=== PATIENT | female | born 1990 | race Caucasian/White ===

== ENCOUNTER 2017-01-14 11:09 | Emergency (ER) | payer BC ==
[~2017-01-14] VITALS: Ht 160 cm; Wt 90.0 kg
[~2017-01-14 11:09] MED LIST: ULTRAM 50MG TAB50 MG PO; ZOFRAN8 MG PO
[2017-01-14 11:14] VITALS: BP 122/73; PULSE 75; TEMP 98.2
[2017-01-14 12:44] LABS: ADJUSTED CALCIUM 9.4 mg/dL (8.4-10.2); ALBUMIN 4.3 gm/dL (3.5-5.0); BILIRUBIN,TOTAL 0.7 mg/dL (0.0-1.0); CALCIUM 9.6 mg/dL (8.4-10.2); CREATININE, serum 0.64 mg/dL (0.52-1.25); POTASSIUM 4.1 mmol/L (3.4-5.0); TOTAL PROTEIN 7.8 gm/dL (6.4-8.2)
[2017-01-14 12:48] LABS: BASO % 0.5 % (0.0-2.0); EOS # 0.2 (0.0-0.7); EOS % 2.3 % (0-4.0); GRAN # 5.4 (1.4-6.5); GRAN % 65.2 % (42.2-75.2); HEMATOCRIT 39.6 % (37.0-47.0); HEMOGLOBIN 12.8 g/dl (12.5-16.0); LYMPH # 2.2 (1.2-3.4); LYMPH % 26.8 % (20.0-51.0); MEAN CELL VOLUME 82 fl (80.0-100.0); MEAN CORPUSCULAR HEMOGLOBIN 27 pg (27.0-31.0); MEAN CORPUSCULAR HGB CONC 32 g/dl (33.0-37.0); MEAN PLATELET VOLUME 10.2 fl (7.4-10.4); MONO # 0.4 (0.1-0.6); PLATELET COUNT 306 K/mm3 (130-400); RED BLOOD COUNT 4.82 M/mm3 (4.10-5.30); REDCELL DISTRIBUTION WIDTH-CV 12.6 % (11.5-14.5); WHITE BLOOD COUNT 8.3 K/mm3 (4.8-10.8)
== END 2017-01-14 13:35 | disposition home or self-care (01) ==
LOC: COL.ER 11:09
PROVIDERS: Physician Assistant
DX: R63.5 Abnormal weight gain (principal); L65.9 Nonscarring hair loss, unspecified; N92.6 Irregular menstruation, unspecified; E01.0 Iodine-deficiency related diffuse (endemic) goiter

== ENCOUNTER → 2017-01-29 | Outpatient (CLI) | payer BC ==
[~2017-01-29] VITALS: Ht 160 cm; Wt 89.1 kg
[~2017-01-29] MED LIST changes: +NORCO 325 MG-7.1 TAB PO
[2017-01-29 13:49] VITALS: BP 113/80; PULSE 73
[2017-01-29 15:00] VITALS: BP 122/79; PULSE 71
[2017-01-29 15:15] VITALS: BP 118/81; PULSE 60
[2017-01-29 15:30] VITALS: BP 130/88; PULSE 67
[2017-01-29 15:45] VITALS: BP 123/77; PULSE 70
== END ==
LOC: COL.RAD 01-22 07:30
DX: C73 Malignant neoplasm of thyroid gland (principal)
CPT/HCPCS: 13756

== ENCOUNTER 2017-02-16 11:21 | Day surgery (SDC) | payer BC ==
[~2017-02-16] VITALS: Ht 160 cm; Wt 89.4 kg
[2017-02-16] VITALS (8 sets, daily range): BP systolic 109–117; BP diastolic 64–77; PULSE 71–81; TEMP 97.2–98.3
[~2017-02-16 11:21] MED LIST changes: -NORCO 325 MG-7.1 TAB PO
[2017-02-17 01:40] VITALS: PULSE 90; TEMP 98.2
[2017-02-17 06:24] VITALS: BP 117/65; PULSE 81; TEMP 98.4
[2017-02-17 10:19] VITALS: BP 119/73; PULSE 70; TEMP 97.9
[2017-02-17 13:35] VITALS: BP 116/67; PULSE 83; TEMP 98.3
[2017-02-17] MEDS ORDERED: NORCO 325 MG-7.1 TAB PO (16:10)
== END 2017-02-17 18:34 | disposition home or self-care (01) ==
LOC: SDCO 11:21 → SURG 16:08 → SDCO 02-17 18:34 → SURG 02-17 18:34
DX: C73 Malignant neoplasm of thyroid gland (principal); Z80.3 Family history of malignant neoplasm of breast; E66.01 Morbid (severe) obesity due to excess calories; Z68.35 Body mass index [BMI] 35.0-35.9, adult
CPT/HCPCS: J1100; J1170; J1885; J2405; J2550; J2704; J3010; J7120

== ENCOUNTER → 2017-03-12 | Outpatient (CLI) | payer BC ==
[~2017-03-12] MED LIST changes: +NORCO 325 MG-7.1 TAB PO
== END ==
LOC: COL.LAB 14:45
DX: R20.0 Anesthesia of skin (principal); R20.2 Paresthesia of skin; Z90.89 Acquired absence of other organs

== ENCOUNTER 2018-05-18 09:36 | Emergency (ER) | payer SELFPAY ==
[~2018-05-18] VITALS: Ht 160 cm; Wt 100.0 kg
[2018-05-18 09:43] VITALS: TEMP 98
[2018-05-18] MEDS ORDERED: LEVOXYL0.125 MG PO (09:48)
[2018-05-18] MEDS ORDERED: LEVOXYL0.112 MG PO (09:48)
[2018-05-18 10:13] LABS: COLLECTION METHOD CLEAN CATCH
[2018-05-18 10:27] LABS: MUCOUS Present /lpf; PH 6 (5-8); URINE APPEARANCE Hazy; URINE BACTERIA Rare /hpf; URINE BILIRUBIN Negative (NEGATIVE); URINE BLOOD Negative (NEGATIVE); URINE COLOR Yellow; URINE GLUCOSE Negative (NEGATIVE); URINE KETONE Negative (NEGATIVE); URINE LEUKOCYTE ESTERASE 2+ (NEGATIVE); URINE NITRATE Negative (NEGATIVE); URINE PROTEIN(semi-quant) Negative (NEGATIVE); URINE RBC 0-2 /hpf; URINE UROBILINOGEN Negative (NEGATIVE)
[2018-05-18 10:31] LABS: BASO # 0.1 (0.0-0.2); BASO % 0.6 % (0.0-2.0); EOS # 0.1 (0.0-0.7); EOS % 1.2 % (0-4.0); GRAN # 4.7 (1.4-6.5); HEMATOCRIT 40.6 % (37.0-47.0); HEMOGLOBIN 13.5 g/dl (12.5-16.0); LYMPH % 35.6 % (20.0-51.0); MEAN CELL VOLUME 82 fl (80.0-100.0); MEAN CORPUSCULAR HEMOGLOBIN 27 pg (27.0-31.0); MEAN CORPUSCULAR HGB CONC 33 g/dl (33.0-37.0); MEAN PLATELET VOLUME 10.8 fl (7.4-10.4); MONO # 0.4 (0.1-0.6); MONO % 5.2 % (1.7-9.3); PLATELET COUNT 274 K/mm3 (130-400); RED BLOOD COUNT 4.96 M/mm3 (4.10-5.30); REDCELL DISTRIBUTION WIDTH-CV 14.6 % (11.5-14.5)
[2018-05-18 10:47] LABS: ALANINE AMINOTRANSFERASE 77 U/L (9-52); ALBUMIN 4.6 gm/dL (3.5-5.0); ALKALINE PHOSPHATASE 79 U/L (50-136); ANION GAP 12 mmol/L (7-16); AST,SGOT 52 U/L (15-37); BILIRUBIN,TOTAL 0.5 mg/dL (0.0-1.0); BLOOD UREA NITROGEN 17 mg/dL (7-17); C-REACTIVE PROTEIN 0.8 mg/dL (0.0-0.9); CALCIUM 9.2 mg/dL (8.4-10.2); CARBON DIOXIDE 26 mmol/L (22-30); CHLORIDE 100 mmol/L (98-107); CREATININE, serum 1.03 mg/dL (0.52-1.25); GLUCOSE 86 mg/dL (74-106); SODIUM 137 mmol/L (137-145); TOTAL PROTEIN 8.5 gm/dL (6.4-8.2)
[2018-05-18] MEDS ORDERED: CEPHALEXIN500 M1 PO (12:39)
[2018-05-18 12:44] VITALS: BP 118/66; PULSE 68
== END 2018-05-18 12:44 | disposition home or self-care (01) ==
LOC: COL.ER 09:36
PROVIDERS: Physician Assistant
DX: N39.0 Urinary tract infection, site not specified (principal); E03.9 Hypothyroidism, unspecified; Z98.890 Other specified postprocedural states; Z85.850 Personal history of malignant neoplasm of thyroid

== ENCOUNTER → 2021-01-20 | Outpatient (CLI) | payer MEDICAID ==
[~2021-01-20] MED LIST changes: +CEPHALEXIN500 M1 PO; +LEVOXYL0.112 MG PO; +LEVOXYL0.125 MG PO
== END ==
LOC: COL.RAD 07:08
DX: K76.0 Fatty (change of) liver, not elsewhere classified (principal)